=== PATIENT | male | born 1960 | race Caucasian/White ===

== ENCOUNTER → 2024-05-31 | Outpatient (CLI) | payer OTHER, MEDICAID, SELFPAY ==
[2024-05-31 16:01] LABS: Basophils # (Auto) 0.1 Thou/mm3 (0.0-0.2); Basophils % (Auto) 1 % (0-2.5); Eosinophils # (Auto) 0.1 Thou/mm3 (0.0-0.5); Eosinophils % (Auto) 1 % (0-10); Hematocrit 51.7 % (41.0-53.0); Hemoglobin 17.1 g/dL (13.5-16.0); Immature Granulocytes % (Auto) 1 % (0-0); Immature Granulocytes Auto 0.06 Thou/mm3 (0.00-0.00); Lymphocytes # (Auto) 2.4 Thou/mm3 (1.0-4.8); Lymphocytes % (Auto) 23 % (10-50); Mean Corpuscular HGB Conc 33.1 g/dl (31.0-37.0); Mean Corpuscular Hemoglobin 29.6 pg (25.0-35.0); Mean Corpuscular Volume 90 fL (80-100); Monocytes % (Auto) 9 % (0-12); Neutrophils # (Auto) 6.6 Thou/mm3 (1.8-7.7); Neutrophils % (Auto) 65 % (37-80); Nucleated Red Blood Cell % 0 /100 WBC (0); Platelet Count 380 Thou/mm3 (140-440); RDW Standard Deviation 43.1 fL (35.1-43.9); Red Blood Count 5.77 Miln/mm3 (4.50-5.90); White Blood Count 10.2 Thou/mm3 (3.8-10.6)
[2024-05-31 16:39] LABS: Alanine Aminotransferase 30 U/L (10-49); Albumin, Serum 4.7 gm/dL (3.4-4.8); Albumin/Globulin Ratio 1.9 (1.2-2.2); Alkaline Phosphatase 69 U/L (46-116); Anion Gap 6 (7-16); Aspartate Amino Transferase 22 U/L (0-34); BUN/Creatinine Ratio 27 Ratio (12-20); Blood Urea Nitrogen 24 mg/dL (9-23); Calcium 9.8 mg/dL (8.3-10.6); Calcium (Corrected) 9.8 mg/dL (8.5-10.1); Carbon Dioxide 30.2 mMol/L (20.0-31.0); Cardiac Risk Estimate 2.8 RATIO (4.0-6.7); Chloride 101 mMol/L (98-107); Cholesterol 180 mg/dL (132-200); Creatinine (Component) 0.9 mg/dL (0.6-1.3); Globulin 2.5 gm/dL (2.3-3.5); Glucose 71 mg/dL (74-106); HDL Cholesterol 64 mg/dL (40-60); LDL Cholesterol,Calculated 95 mg/dL (0-130); Osmolality,Calculated 275 (275-295); Potassium 4.7 mMol/L (3.4-5.1); Sodium 137 mMol/L (136-145); Total Protein 7.2 gm/dL (5.7-8.2); Triglycerides 103 mg/dL (30-150); eGFR > 60 See Note
== END | disposition home or self-care (01) ==
LOC: COPL 14:35
PROVIDERS: PCP Family Medicine; Referring Provider Family Medicine; Visit Provider Family Medicine
DX: E78.2 Mixed hyperlipidemia (principal); I10 Essential (primary) hypertension; D75.1 Secondary polycythemia
CPT/HCPCS: 36415; 80053; 80061; 85025

== ENCOUNTER → 2024-08-03 | Outpatient (CLI) | payer OTHER, MEDICAID, SELFPAY ==
[2024-08-03 13:24] LABS: Prostate Specific Antigen 0.43 ng/mL (0-4.00)
[2024-08-03 13:54] LABS: Basophils # (Auto) 0.1 Thou/mm3 (0.0-0.2); Basophils % (Auto) 1 % (0-2.5); Eosinophils # (Auto) 0.1 Thou/mm3 (0.0-0.5); Eosinophils % (Auto) 1 % (0-10); Hemoglobin 16.6 g/dL (13.5-16.0); Immature Granulocytes % (Auto) 1 % (0-0); Immature Granulocytes Auto 0.07 Thou/mm3 (0.00-0.00); Lymphocytes # (Auto) 1.6 Thou/mm3 (1.0-4.8); Lymphocytes % (Auto) 13 % (10-50); Mean Corpuscular HGB Conc 33.2 g/dl (31.0-37.0); Mean Corpuscular Volume 90 fL (80-100); Monocytes % (Auto) 8 % (0-12); Neutrophils # (Auto) 9.1 Thou/mm3 (1.8-7.7); Neutrophils % (Auto) 76 % (37-80); Nucleated Red Blood Cell % 0 /100 WBC (0); Platelet Count 310 Thou/mm3 (140-440); RDW Standard Deviation 45.1 fL (35.1-43.9); Red Blood Count 5.54 Miln/mm3 (4.50-5.90); White Blood Count 11.9 Thou/mm3 (3.8-10.6)
[2024-08-10 06:57] LABS: Testosterone, Free,Dialysis 244.7 pg/mL (35.0-155.0); Testosterone, Total, Dialysis 1536 ng/dL (250-1100)
== END | disposition home or self-care (01) ==
LOC: COPL 12:39
PROVIDERS: PCP Family Medicine; Referring Provider Urology; Visit Provider Urology
DX: N40.1 Benign prostatic hyperplasia with lower urinary tract symptoms (principal); E29.1 Testicular hypofunction
CPT/HCPCS: 36415; 84153; 84402; 84403; 85025

== ENCOUNTER → 2024-12-23 | Outpatient (CLI) | payer OTHER, MEDICAID, SELFPAY ==
[2024-12-23 12:09] LABS: Basophils # (Auto) 0.1 Thou/mm3 (0.0-0.2); Basophils % (Auto) 1 % (0-2.5); Eosinophils # (Auto) 0.1 Thou/mm3 (0.0-0.5); Eosinophils % (Auto) 2 % (0-10); Hematocrit 47.1 % (41.0-53.0); Hemoglobin 16.2 g/dL (13.5-16.0); Immature Granulocytes % (Auto) 1 % (0-0); Immature Granulocytes Auto 0.05 Thou/mm3 (0.00-0.00); Lymphocytes # (Auto) 1.8 Thou/mm3 (1.0-4.8); Lymphocytes % (Auto) 30 % (10-50); Mean Corpuscular HGB Conc 34.4 g/dl (31.0-37.0); Mean Corpuscular Hemoglobin 29.5 pg (25.0-35.0); Mean Corpuscular Volume 86 fL (80-100); Monocytes # (Auto) 0.8 Thou/mm3 (0.0-0.8); Monocytes % (Auto) 13 % (0-12); Neutrophils # (Auto) 3.2 Thou/mm3 (1.8-7.7); Neutrophils % (Auto) 54 % (37-80); Nucleated Red Blood Cell % 0 /100 WBC (0); Platelet Count 394 Thou/mm3 (140-440); White Blood Count 5.9 Thou/mm3 (3.8-10.6)
[2024-12-23 12:21] LABS: Creatinine,Random Urine 209 mg/dL (30-125); Protein Total, Random Urine 15 mg/dL (1-14)
[2024-12-23 12:39] LABS: Sed Rate (ESR) 22 mm/hr (0-20)
[2024-12-23 12:40] LABS: Alanine Aminotransferase 46 U/L (10-49); Aspartate Amino Transferase 27 U/L (0-34); C-Reactive Protein < 0.5 mg/dL (0.0-0.9); Free T4 (Free Thyroxine) 0.89 ng/dL (0.89-1.76); Thyroid Stimulating Hormone 4.05 uIU/mL (0.55-4.78); eGFR > 60 See Note
[2024-12-23 13:55] LABS: RA Screen Positive (Negative)
[2024-12-27 07:06] LABS: PTT-LA Screen 32 seconds (< OR = 40); dRVVT Screen 34 seconds (< OR = 45)
[2024-12-30 08:48] LABS: Cardiolipin Ab (IgA) <2.0 APL-U/mL; Cardiolipin Ab (IgG) 2.5 GPL-U/mL; Sm Antibody <1.0 NEG AI (<1.0 NEGATIVE)
[2025-01-02 06:46] LABS: ANA Screen, IFA NEGATIVE (NEGATIVE); Cardiolipin Ab (IgM) <2.0 MPL-U/mL; Complement Component C3* 168 mg/dL (82-185); Complement Component C4c* 31 mg/dL (15-53); DNA (ds) Antibody* 1 IU/mL; HLA-B27 Antigen* NEGATIVE (NEGATIVE); Parvovirus B19 Ab IgG 4.4; Parvovirus B19 Ab IgM 0.1; Sm/RNP Antibody <1.0 NEG AI (<1.0 NEGATIVE); Thyroglobulin Antibodies* <1 IU/mL (< OR = 1); Thyroid Peroxidase Antibodies* 1 IU/mL (<9)
== END | disposition home or self-care (01) ==
LOC: COPL 10:41
PROVIDERS: PCP Family Medicine; Referring Provider Internal Medicine Rheumatology; Visit Provider Internal Medicine Rheumatology
DX: R76.8 Other specified abnormal immunological findings in serum (principal)
CPT/HCPCS: 36415; 82565; 82570; 84156; 84439; 84443; 84450; 84460; 85025; 85613; 85652; 85730; 86038; 86140; 86147; 86160; 86225; 86235; 86376; 86430; 86431; 86747; 86800; 86812

== ENCOUNTER → 2025-02-23 | Outpatient (CLI) | payer OTHER, MEDICAID, SELFPAY ==
--- NOTE | 2025-02-23 12:40 | XR_ITS ---
Examination: Bone densitometry Date and time of exam:February 23, 2025, 1325 hours INDICATIONS: 65-year-old male with diagnosis age related osteoporosis, history ankle wrist fractures, family history, mother osteoporosis, patient taking methotrexate for rheumatoid arthritis, vitamin D one month Technique: Lumbar spine and hip total bone mineralization values of an calculated. Peak reference and age match control results have been displayed. Findings: Lumbar spine total bone mineralization is1.349 gm/cm2. This is 2.3 standard deviations above peak reference. This is 3.1 standard deviations above age-matched controls. Hip total bone mineralization is 1.226 gm/cm2 This is 1.3 standard deviations above peak reference. This is 1.8 standard deviations above age-matched controls Impression: There is normal mineralization based on lumbar spine measurements. There is normal mineralization based on hip measurements Lumbar mineralization is increased 5.0% compared with 03/20/2021 Hip mineralization is increased 2.0% compared with 03/20/2021
== END | disposition home or self-care (01) ==
PROVIDERS: PCP Family Medicine; Referring Provider Family Medicine; Visit Provider Family Medicine
DX: M81.0 Age-related osteoporosis without current pathological fracture (principal)
CPT/HCPCS: 77080

== ENCOUNTER → 2025-03-09 | Outpatient (CLI) | payer OTHER, MEDICAID, SELFPAY ==
[2025-03-09 12:06] LABS: Basophils # (Auto) 0.1 Thou/mm3 (0.0-0.2); Basophils % (Auto) 2 % (0-2.5); Eosinophils # (Auto) 0.1 Thou/mm3 (0.0-0.5); Eosinophils % (Auto) 3 % (0-10); Hematocrit 47.6 % (41.0-53.0); Hemoglobin 15.9 g/dL (13.5-16.0); Immature Granulocytes Auto 0.03 Thou/mm3 (0.00-0.00); Lymphocytes # (Auto) 1.6 Thou/mm3 (1.0-4.8); Lymphocytes % (Auto) 30 % (10-50); Mean Corpuscular HGB Conc 33.4 g/dl (31.0-37.0); Mean Corpuscular Hemoglobin 30.1 pg (25.0-35.0); Mean Corpuscular Volume 90 fL (80-100); Monocytes # (Auto) 0.7 Thou/mm3 (0.0-0.8); Monocytes % (Auto) 13 % (0-12); Neutrophils # (Auto) 2.7 Thou/mm3 (1.8-7.7); Neutrophils % (Auto) 52 % (37-80); Nucleated Red Blood Cell # 0.00 Thou/mm3 (0.00-0.00); Nucleated Red Blood Cell % 0 /100 WBC (0); Platelet Count 300 Thou/mm3 (140-440); RDW Standard Deviation 43.9 fL (35.1-43.9); Red Blood Count 5.29 Miln/mm3 (4.50-5.90); White Blood Count 5.2 Thou/mm3 (3.8-10.6)
[2025-03-09 12:30] LABS: Prostate Specific Antigen 0.62 ng/mL (0-4.00)
[2025-03-17 07:13] LABS: Testosterone, Free,Dialysis 46.7 pg/mL (35.0-155.0); Testosterone, Total, Dialysis 465 ng/dL (250-1100)
== END | disposition home or self-care (01) ==
PROVIDERS: PCP Family Medicine; Referring Provider Surgery; Visit Provider Surgery
DX: N40.1 Benign prostatic hyperplasia with lower urinary tract symptoms (principal); E29.1 Testicular hypofunction; R53.83 Other fatigue
CPT/HCPCS: 36415; 84153; 84402; 84403; 85025

== ENCOUNTER 2025-04-27 05:14 | Emergency (ER) | payer OTHER, MEDICAID, SELFPAY ==
[2025-04-27 05:15] VITALS: BP 174/98; PULSE 87; RESP 17; TEMP 36.8; O2SAT 95; BMI 38.2
--- NOTE | 2025-04-27 05:28 | EDRME_ITS ---
Rapid Medical Screening Exam [facility] Arrival date/time: 04/27/25 05:14 65M with history of HTN and afib presents to ED with upper ab pain and N/V. Son recently had similar symptoms, but also had diarrhea. Chief Complaint: Nausea/Vomiting/Diarrhea Vital signs: Vital Signs Temperature 98.2 F 04/27/25 05:15 Pulse Rate 87 04/27/25 05:15 Respiratory Rate 17 04/27/25 05:15 Blood Pressure 174/98 H 04/27/25 05:15 Pulse Oximetry (%) 95 04/27/25 05:15 Oxygen Delivery Method Room Air 04/27/25 05:15
[2025-04-27] MEDS: ONDANSETRON INJ 2 MG/ML INJ 2 ML 4 MG IV (06:02)
[2025-04-27] MEDS: SODIUM CHLORIDE 0.9% 1000 ML 1,000 ML 999 ML IV (06:03)
[2025-04-27 06:04] VITALS: BP 160/90; PULSE 86; RESP 19; TEMP 36.9; O2SAT 95
--- NOTE | 2025-04-27 06:21 | XR_ITS ---
Examination: CT abdomen and pelvis without contrast. Coronal 3-D reconstructions. Sagittal 2-D reconstructions. Date and time of exam: April 27, 2025, 0826 hours INDICATIONS: Upper abdominal pain and nausea beginning this morning COMPARISON: 01/17/2022 CTDI: vol (mGy): 16.7 DLP: (mGycm): 1145 Technique: Axial images of the abdomen have been obtained, 3 mm slice thickness Intravenous contrast material has not been administered. Low dose protocols were performed. One or more of the following dose reduction techniques were used; automated exposure control, adjustment of the mA and/or KV according to patient size, use of iterative reconstruction technique. Findings: No focal liver or splenic lesions Small gallstones Atrophic pancreas Spleen is not enlarged Moderate renal scar formation with perinephric stranding No renal or ureteral calculi Aortic calcification no aneurysmal dilatation No bowel obstruction No pericecal inflammatory change No diverticulitis Urinary bladder intact No prostatomegaly Moderate osteopenia IMPRESSION: Cholelithiasis, recommend gallbladder sonography follow-up Moderate bilateral renal parenchymal scar formation, no hydronephrosis renal or ureteral calculi No CT findings of appendicitis or bowel obstruction
[2025-04-27 06:37] LABS: Basophils # (Auto) 0.1 Thou/mm3 (0.0-0.2); Basophils % (Auto) 1 % (0-2.5); Eosinophils # (Auto) 0.0 Thou/mm3 (0.0-0.5); Eosinophils % (Auto) 0 % (0-10); Hematocrit 46.9 % (41.0-53.0); Hemoglobin 15.7 g/dL (13.5-16.0); Immature Granulocytes Auto 0.06 Thou/mm3 (0.00-0.00); Lymphocytes # (Auto) 0.5 Thou/mm3 (1.0-4.8); Lymphocytes % (Auto) 5 % (10-50); Mean Corpuscular HGB Conc 33.5 g/dl (31.0-37.0); Mean Corpuscular Hemoglobin 29.6 pg (25.0-35.0); Mean Corpuscular Volume 88 fL (80-100); Monocytes # (Auto) 0.8 Thou/mm3 (0.0-0.8); Monocytes % (Auto) 7 % (0-12); Neutrophils # (Auto) 9.7 Thou/mm3 (1.8-7.7); Neutrophils % (Auto) 87 % (37-80); Nucleated Red Blood Cell # 0.00 Thou/mm3 (0.00-0.00); Nucleated Red Blood Cell % 0 /100 WBC (0); Platelet Count 258 Thou/mm3 (140-440); RDW Standard Deviation 42.1 fL (35.1-43.9); Red Blood Count 5.31 Miln/mm3 (4.50-5.90); White Blood Count 11.1 Thou/mm3 (3.8-10.6)
[2025-04-27] MEDS: ACETAMINOPHEN 325 MG TABLET 650 MG PO (06:39)
[2025-04-27 06:49] LABS: Collection Type, Urine Clean Catch; Squamous Epithelial Cell,Urine 0 /hpf (0-5); WBC,Urine 0 /hpf (0-5)
[2025-04-27] MEDS: PROMETHAZINE 25 MG SUPP PR (06:54)
[2025-04-27 07:02] LABS: Alanine Aminotransferase 29 U/L (10-49); Albumin, Serum 4.6 gm/dL (3.4-4.8); Albumin/Globulin Ratio 2.1 (1.2-2.2); Alkaline Phosphatase 60 U/L (46-116); Anion Gap 9 (7-16); Aspartate Amino Transferase 22 U/L (0-34); BUN/Creatinine Ratio 10 Ratio (12-20); Bilirubin,Total 0.6 mg/dL (0.3-1.2); Blood Urea Nitrogen 10 mg/dL (9-23); Calcium 8.9 mg/dL (8.3-10.6); Calcium (Corrected) 8.9 mg/dL (8.5-10.1); Carbon Dioxide 27.9 mMol/L (20.0-31.0); Chloride 102 mMol/L (98-107); Creatinine (Component) 1.0 mg/dL (0.6-1.3); Estimated Creatinine Clearance 104.7 mL/min (>60); Globulin 2.2 gm/dL (2.3-3.5); Glucose 135 mg/dL (74-106); Lipase 19 U/L (12-53); Osmolality,Calculated 278 (275-295); Potassium 4.5 mMol/L (3.4-5.1); Sodium 139 mMol/L (136-145); Total Protein 6.8 gm/dL (5.7-8.2); eGFR > 60 See Note
[2025-04-27 07:34] VITALS: BP 130/77; PULSE 80; RESP 22; TEMP 37.2; O2SAT 97
[2025-04-27 07:39] LABS: Bacteria,Urine Rare; Bilirubin,Urine Negative (Negative); Blood,Urine Negative (Negative); Clarity,Urine Clear (Clear/Hazy); Color,Urine Yellow (Lt Yel-Yel); Culture Indicated,Urine Not Indicated; Glucose, Urine Negative (Negative); Ketones,Urine Negative (Negative); Leukocyte Esterase,Urine Negative (Negative); Nitrite,Urine Negative (Negative); PH,Urine 8.0 (5.0-7.0); Protein,Urine Trace (Neg - Trace); RBC,Urine 9 /hpf (0-3); Specific Gravity,Urine 1.026 (1.001-1.035); Urobilinogen,Urine 2.0 mg/dL (0.0-1.0)
[2025-04-27 08:00] VITALS: BP 122/71; PULSE 69; RESP 20; O2SAT 94
[2025-04-27 09:00] VITALS: BP 116/70; PULSE 67; RESP 20; O2SAT 96
--- NOTE | 2025-04-27 10:21 | PD.EDNV ---
Nausea/Vomit./Diarrhea-RME/HPI General Chief complaint: Nausea/Vomiting/Diarrhea Stated complaint: NV Time Seen by Provider: 04/27/25 06:15 Arrival date/time: 04/27/25 05:14 Limitations: no limitations RME / HPI RME / HPI Narrative: 04/27/25 05:14 65M with history of HTN and afib presents to ED with upper ab pain and N/V. Son recently had similar symptoms, but also had diarrhea. DR. VASQUEZ MAIN ED EVALUATION: 65 year old male with history of hypertension and atrial fibrillation presents to the ED for evaluation of nausea and vomiting beginning yesterday. Accompanied by mild upper abdominal pain. Reportedly son had similar symptoms though more severe. Otherwise no other complaints or associated symptoms. Denies fevers, chills, chest pain, cough, diarrhea, or urinary symptoms. Related Data Home Medications ?Medication ?Instructions ?Recorded ?Confirmed metoprolol succinate 25 mg 25 mg PO BID ##0 03/12/17 06/24/21 tablet,extended release 24 hr atorvastatin 40 mg tablet 40 mg PO DAILY 06/21/21 06/24/21 escitalopram oxalate 10 mg tablet 10 mg PO QDAY 06/21/21 06/24/21 hydrochlorothiazide 12.5 mg capsule 12.5 mg PO QAM 06/21/21 06/24/21 hydrocodone 10 mg-acetaminophen 1 tab PO [id number] PRN Pain 06/21/21 06/24/21 325 mg tablet losartan 50 mg tablet 50 mg PO QDAY 06/21/21 06/24/21 methadone 5 mg tablet 5 mg PO Q6H 06/21/21 06/24/21 pantoprazole 40 mg tablet,delayed 40 mg PO QDAY 06/21/21 06/24/21 release tadalafil 5 mg tablet 5 mg PO QDAY PRN Erectile 06/21/21 06/24/21 Dysfunction Previous Rx's ?Medication ?Instructions ?Recorded flecainide 50 mg tablet 100 mg (2 x 50 mg) PO BID #60 tabs 06/22/21 prochlorperazine 25 mg rectal 25 mg MT Q12H PRN nausea and 06/19/22 suppository (Compazine) vomiting #12 ea promethazine 25 mg rectal 25 mg MT Q6H PRN nausea and 04/27/25 suppository vomiting #12 ea Allergies Allergy/AdvReac Type Severity Reaction Status Date / Time amoxicillin Allergy Intermediate HIVES Verified 04/27/25 05:15 Review of Systems Review of Systems Systems Reviewed: All systems reviewed, normal except as documented Past Medical History Past Medical History CARDIAC: Positive Cardiac Arrhythmia, Atrial Fibrillation, Hypercholesterolemia and Hypertension RESPIRATORY: Positive Chronic Obstructive Pulmonary Disease (COPD), Asthma, Bronchitis and Sleep Apnea MUSCULOSKELETAL: Positive Musculoskeletal Disorders, Arthritis, Degenerative Disk Disease and Degenerative Joint Disease PSYCHO/SOCIAL: Positive Depression Family History FAMILY HISTORY: Positive Family Cardiac Disorders Surgical History SURGICAL: Positive Knee Sx (x3 left knee x4 right knee) and Arthroscopy Social History SMOKING STATUS: Never smoker SECOND HAND EXPOSURE: No ED Exam General Limitations: Present no limitations General appearance: Present alert and in no apparent distress Head Head exam: Present atraumatic, normocephalic and normal inspection Eye Eye exam: Present normal appearance, PERRL and EOMI ENT ENT exam: Present normal exam, normal oropharynx and mucous membranes moist Neck Neck exam: Present normal inspection, full ROM and trachea midline Chest Chest inspection: Present normal inspection and symmetric chest wall rise Respiratory Respiratory exam: Present normal lung sounds bilaterally Cardiovascular Cardiovascular exam: Present regular rate, normal rhythm and normal heart sounds Abdominal Exam Abdominal exam: Present soft and normal bowel sounds; Absent distention, tenderness, guarding, rebound or rigidity Extremities Exam Extremities exam: Present normal inspection and full ROM Back Exam Back exam: Present normal inspection and full ROM Neurological Exam Neurological exam: Present alert, oriented X3 and CN II-XII intact Psychiatric Psychiatric exam: Present normal affect and normal mood Skin Skin exam: Present warm, dry, intact and normal color Course Quality Measures none Orders Category Date Time Status Insert IV NOW Care 04/27/25 05:[address] abdomen pelvis wo con Stat Exams 04/27/25 06:21 Completed US gall bladder Stat Exams 04/27/25 10:13 Stop Req CBC Stat Lab 04/27/25 06:23 Completed CMP [Comprehensive Metabolic Panel] Stat Lab 04/27/25 06:23 Completed Lipase Stat Lab 04/27/25 06:23 Completed Urinalysis, C/S if Indicated Stat Lab 04/27/25 00:44 Completed Acetaminophen Tab [Tylenol Tab] Med 04/27/25 06:29 Discontinued 650 mg PO X1 ONE Ondansetron Inj [Zofran Inj] Med 04/27/25 05:27 Discontinued 4 mg IV X1 ONE Promethazine HCl [Phenergan Supp] Med 04/27/25 06:45 Discontinued 25 mg MT X1 ONE Sodium Chloride 0.9% 1000 ml [Ns] 1,000 ml Med 04/27/25 05:27 Discontinued IV 999 mls/hr Vital Signs Vital signs: Vital Signs Temperature 98.2 F 04/27/25 05:15 Pulse Rate 87 04/27/25 05:15 Respiratory Rate 17 04/27/25 05:15 Blood Pressure 174/98 H 04/27/25 05:15 Pulse Oximetry (%) 95 04/27/25 05:15 Oxygen Delivery Method Room Air 04/27/25 05:15 Pulse ox is 95% on room air which is adequate. Nausea/Vomiting/Diarrhea MDM Narrative MDM Narrative:: Amanda Luong am scribing for and in the presence of Dr. Chauhan. Patient data External records reviewed:: [facility] previous records Clinical information provided by:: patient Social determinants that could affect healthcare access:: none Patient has the following chronic illnesses:: Hypertension, atrial fibrillation How is presenting disease/condition affected by chronic disease/condition?: uneffected by Evaluation data The following diagnostics were reviewed and interpreted by me:: lab results and radiology exam(s) Lab and/or radiology exams considered but not ordered:: None Interpretation Summary: Ordering Physician: Josemanuel Vasquez MD Date of Service: 04/27/25 Procedure(s): CT abdomen pelvis wo con Accession Number(s): [id number] cc: Josemanuel Vasquez MD; Robby Guerrero MD; Teetee Sunshine MD~ Examination: CT abdomen and pelvis without contrast. Coronal 3-D reconstructions. Sagittal 2-D reconstructions. Date and time of exam: April 27, 2025, 0826 hours INDICATIONS: Upper abdominal pain and nausea beginning this morning COMPARISON: 01/17/2022 CTDI: vol (mGy): 16.7 DLP: (mGycm): 1145 Technique: Axial images of the abdomen have been obtained, 3 mm slice thickness Intravenous contrast material has not been administered. Low dose protocols were performed. One or more of the following dose reduction techniques were used; automated exposure control, adjustment of the mA and/or KV according to patient size, use of iterative reconstruction technique. Findings: No focal liver or splenic lesions Small gallstones Atrophic pancreas Spleen is not enlarged Moderate renal scar formation with perinephric stranding No renal or ureteral calculi Aortic calcification no aneurysmal dilatation No bowel obstruction No pericecal inflammatory change No diverticulitis Urinary bladder intact No prostatomegaly Moderate osteopenia IMPRESSION: Cholelithiasis, recommend gallbladder sonography follow-up Moderate bilateral renal parenchymal scar formation, no hydronephrosis renal or ureteral calculi No CT findings of appendicitis or bowel obstruction Dictated By: Robby Guerrero MD Signed By: <Electronically signed by Robby Guerrero MD in OV> 04/27/25 0957 Medications / Prescriptions Medications / Prescriptions considered but not ordered:: None Medication administrations:: Medication Administration History Discontinued Medications Acetaminophen (Acetaminophen 325 Mg Tablet) 650 mg PO X1 ONE Stop: 04/27/25 06:30 Last Admin: 04/27/25 06:39 Dose: 650 mg Documented By: JOE Sodium Chloride (Ns) 1,000 mls @ 999 mls/hr IV .Q1H1M ONE Stop: 04/27/25 06:27 Last Infusion: 04/27/25 08:22 Dose: Infused Documented By: Admin: 04/27/25 06:03 Dose: 999 mls/hr Documented By: JOE Ondansetron HCl (Ondansetron Inj 2 Mg/Ml Inj 2 Ml) 4 mg IV X1 ONE; Protocol Stop: 04/27/25 05:28 Last Admin: 04/27/25 06:02 Dose: 4 mg Documented By: JOE Promethazine HCl (Promethazine 25 Mg Supp) 25 mg MT X1 ONE Stop: 04/27/25 06:46 Last Admin: 04/27/25 06:54 Dose: 25 mg Documented By: JOE See above Consultations Consultation(s) initiated? (list below): No Diagnosis Nausea Differential Diagnosis: food poisoning, gastroenteritis, drug-induced nausea and vomiting and dehydration Most likely diagnosis given after review of the tests above:: Acute gastroenteritis Admission Indicated Admission indicated?: not indicated Admission Request Was there a request for admission?: No Disposition Plan Disposition Plan: Discharge Discharge Attestation Discharge Attestation: The patient and all family members were given an opportunity to ask questions and understood the discharge instructions. Discharge instructions specifically effects, indications for sooner follow up or return to the emergency department, and the expected course of current diagnosis. Patient condition: Stable Discharge Plan Plan Patient Disposition: HOME (Self Care) Patient condition on transfer: Stable Prescriptions/Referrals Prescriptions/Med Rec: No Action metoprolol succinate 25 MG tablet extended release 24 hr 25 mg PO BID Qty: 0 methadone 5 mg tablet 5 mg PO Q6H Patient Comments: TAKE ONE TABLET BY MOUTH EVERY 6 HOURS FOR 30 DAYS hydrocodone-acetaminophen 10-325 mg tablet 1 tab PO B0ULSSE PRN (Reason: Pain) Patient Comments: TAKE ONE TABLET BY MOUTH EVERY 4 TO 6 HOURS NEEDED FOR 30 DAYS atorvastatin 40 mg Tablet 40 mg PO DAILY escitalopram oxalate 10 mg Tablet 10 mg PO QDAY losartan 50 mg Tablet 50 mg PO QDAY pantoprazole 40 mg Tablet,Delayed Release (Dr/Ec) 40 mg PO QDAY hydrochlorothiazide 12.5 mg Capsule 12.5 mg PO QAM tadalafil 5 mg Tablet 5 mg PO QDAY PRN (Reason: Erectile Dysfunction) flecainide 50 mg Tablet 100 mg PO BID Qty: 60 0RF prochlorperazine [Compazine] 25 mg suppository 25 mg MT Q12H PRN (Reason: nausea and vomiting) Qty: 12 0RF Referrals: Teetee Duarte MD [Primary Care Provider, Family Practice] - In 1 week Problem List Clinical Impression: Gastroenteritis Patient/Caregiver Discharge Instructions Discharge Activity: activity as tolerated Education Materials: ED Gastroenteritis, Noninfectious Additional Instructions: Follow-up with your doctor as an outpatient next week. You did have gallstones on the CAT scan and ask your doctor to do a right upper quadrant ultrasound as follow-up. Print Language: Chinese Stand Alone Forms: Anali Award Info., Patient Portal Info Letter
[2025-04-27 10:32] VITALS: BP 112/76; PULSE 78; RESP 16; TEMP 37.1; O2SAT 99
== END 2025-04-27 10:42 | disposition home or self-care (01) ==
PROVIDERS: Physician Assistant; Emergency Provider Family Medicine; PCP Family Medicine
DX: K80.20 Calculus of gallbladder without cholecystitis without obstruction (principal); K52.9 Noninfective gastroenteritis and colitis, unspecified; I48.91 Unspecified atrial fibrillation; I10 Essential (primary) hypertension; Z79.899 Other long term (current) drug therapy
CPT/HCPCS: 36415; 74176; 80053; 81001; 83690; 85025; 96361; 96374; 99284; J2405; J7030; A9270

== ENCOUNTER 2025-04-29 07:49 | Emergency (ER) | payer OTHER, MEDICAID, SELFPAY ==
--- NOTE | 2025-04-29 07:53 | EKG_ITS ---
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
[2025-04-29 08:02] VITALS: BP 128/84; PULSE 106; RESP 18; TEMP 37.1; O2SAT 93
--- NOTE | 2025-04-29 08:05 | XR_ITS ---
Examination: AP chest single view TECHNIQUE: AP portable upright chest single view Date and time: April 29, 2025, 0847 hours INDICATIONS: Chest pain today FINDINGS: No significant cardiac enlargement Mild to moderate vascular congestion. No lobar pneumonia No courtney pulmonary edema. Prominent osteopenia IMPRESSION: Mild to moderate vascular congestion
--- NOTE | 2025-04-29 08:06 | PD.EDRME ---
Rapid Medical Screening Exam RME Arrival date/time: 04/29/25 07:49 65-year-old male with history of A-fib presents to the Emergency Department today stating that he was in A-fib today in the 150s patient reports taking flecainide as well as metoprolol Chief Complaint: Arrhythmia/Palpitations Vital signs: Vital Signs Temperature 98.7 F 04/29/25 08:02 Pulse Rate 106 H 04/29/25 08:02 Respiratory Rate 18 04/29/25 08:02 Blood Pressure 128/84 04/29/25 08:02 Pulse Oximetry (%) 93 L 04/29/25 08:02 Oxygen Delivery Method Room Air 04/29/25 08:02 Vital signs reviewed by provider: Yes Exam: On exam patient is in A-fib Patient appears to be stable at this time Clinical Impression: Initial lab work and imaging obtained
[2025-04-29 08:27] VITALS: PULSE 116
[2025-04-29 08:28] VITALS: BMI 38.2
--- NOTE | 2025-04-29 08:28 | PD.EDARRY ---
ED Arrhythmia Palp. RME/HPI General Chief Complaint: Arrhythmia/Palpitations Stated Complaint: AFIB Time Seen by Provider: 04/29/25 08:19 Arrival date/time: 04/29/25 07:49 RME / HPI RME / HPI narrative: 04/29/25 07:49 65-year-old male with history of A-fib presents to the Emergency Department today stating that he was in A-fib today in the 150s patient reports taking flecainide as well as metoprolol DR. CHAUHAN MAIN ED EVALUATION: 65-year-old male with a history of atrial fibrillation presents to the Emergency Department accompanied by his for evaluation of palpitations, chest pain, and shortness of breath that began earlier today. The patient states his heart rate at home was around 150. He took 300 mg of flecainide and 100 mg of metoprolol prior to arrival without full symptom relief, that is what his digital learning platforms manager recommended if he is symptomatic. He reports persistent shortness of breath and mild residual chest tightness, but the intensity of his chest pain has improved since onset. Denies abdominal pain, nausea, vomiting, or diarrhea. No recent illness, caffeine excess, or missed medications reported. He was previously in atrial fibrillation with RVR back on 06/17/2022 and is followed by digital learning platforms manager Dr. Mckeon. Related Data Home Medications ?Medication ?Instructions ?Recorded ?Confirmed metoprolol succinate 25 mg 25 mg PO BID ##0 03/12/17 06/24/21 tablet,extended release 24 hr atorvastatin 40 mg tablet 40 mg PO DAILY 06/21/21 06/24/21 escitalopram oxalate 10 mg tablet 10 mg PO QDAY 06/21/21 06/24/21 hydrochlorothiazide 12.5 mg capsule 12.5 mg PO QAM 06/21/21 06/24/21 hydrocodone 10 mg-acetaminophen 1 tab PO [id number] PRN Pain 06/21/21 06/24/21 325 mg tablet losartan 50 mg tablet 50 mg PO QDAY 06/21/21 06/24/21 methadone 5 mg tablet 5 mg PO Q6H 06/21/21 06/24/21 pantoprazole 40 mg tablet,delayed 40 mg PO QDAY 06/21/21 06/24/21 release tadalafil 5 mg tablet 5 mg PO QDAY PRN Erectile 06/21/21 06/24/21 Dysfunction Previous Rx's ?Medication ?Instructions ?Recorded flecainide 50 mg tablet 100 mg (2 x 50 mg) PO BID #60 tabs 06/22/21 prochlorperazine 25 mg rectal 25 mg NE Q12H PRN nausea and 06/19/22 suppository (Compazine) vomiting #12 ea promethazine 25 mg rectal 25 mg NE Q6H PRN nausea and 04/27/25 suppository vomiting #12 ea Allergies Allergy/AdvReac Type Severity Reaction Status Date / Time amoxicillin Allergy Intermediate HIVES Verified 04/27/25 05:15 Review of Systems Review of Systems Systems Reviewed: All systems reviewed, normal except as documented Past Medical History Past Medical History CARDIAC: Positive Cardiac Arrhythmia, Atrial Fibrillation, Hypercholesterolemia and Hypertension RESPIRATORY: Positive Chronic Obstructive Pulmonary Disease (COPD), Asthma, Bronchitis and Sleep Apnea MUSCULOSKELETAL: Positive Musculoskeletal Disorders, Arthritis, Degenerative Disk Disease and Degenerative Joint Disease PSYCHO/SOCIAL: Positive Depression Family History FAMILY HISTORY: Positive Family Cardiac Disorders Surgical History SURGICAL: Positive Knee Sx (x3 left knee x4 right knee) and Arthroscopy Social History SMOKING STATUS: Never smoker SECOND HAND EXPOSURE: No SUBSTANCE USE: does not use ED Exam Narrative Physical exam: GENERAL APPEARANCE: alert and oriented x 4, well-developed, well-nourished, no acute distress VITALS: All vitals were reviewed and the pulse ox is 93% on room air, which is normal according to my interpretation. HEENT: Normocephalic, atraumatic; pupils equal, round, reactive to light; EOMI; mucous membranes pink, moist; oropharynx clear NECK: Supple LUNGS: CTABL; no wheezes, no rales, no rhonchi HEART: Irregularly irregular and tachycardic rhythm consistent with atrial fibrillation with RVR; no murmurs, rubs, or gallops. 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 Care 04/29/25 08:05 Active EKG (ED ONLY) *Do not use* NOW Care 04/29/25 07:53 Completed Insert IV NOW Care 04/29/25 08:25 Active EKG (ED Only) Stat Exams 04/29/25 07:53 Draft XR chest 1V portable Stat Exams 04/29/25 08:05 Ordered B-Type Natriuretic Peptide Stat Lab 04/29/25 08:13 Received CBC Stat Lab 04/29/25 08:13 Received Comprehensive Metabolic Panel Stat Lab 04/29/25 08:13 Received Magnesium Stat Lab 04/29/25 08:13 Received Partial Thromboplastin Time Stat Lab 04/29/25 08:13 Received Prothrombin Time with INR Stat Lab 04/29/25 08:13 Received Troponin I Stat Lab 04/29/25 08:13 Received Diltiazem Inj [Cardizem Inj] Med 04/29/25 08:27 Once 10 mg IV X1 ONE Vital Signs Vital signs: Vital Signs Temperature 98.7 F 04/29/25 08:02 Pulse Rate 106 H 04/29/25 08:02 Respiratory Rate 18 04/29/25 08:02 Blood Pressure 128/84 04/29/25 08:02 Pulse Oximetry (%) 93 L 04/29/25 08:02 Oxygen Delivery Method Room Air 04/29/25 08:02 Arrhythmia/Palpitations MDM Narrative MDM Narrative:: I, Parisa Brown am scribing for and in the presence of Dr. Chauhan. Patient data External records reviewed:: [facility] previous records Clinical information provided by:: patient and spouse Social determinants that could affect healthcare access:: none Patient has the following chronic illnesses:: Atrial fibrillation; he was previously in atrial fibrillation with RVR back on 06/17/2022 and is followed by digital learning platforms manager Dr. Mckeon. How is presenting disease/condition affected by chronic disease/condition?: caused by Evaluation data The following diagnostics were reviewed and interpreted by me:: lab results, radiology exam(s) and EKG tracing(s) (My interpretation: EKG performed at 0805 hours, atrial fibrillation, rate 130, mild baseline wander, slight STdepression and flattening of V4-V6, T wave inversion in V1, lead 3, and AVF ) Lab and/or radiology exams considered but not ordered:: none Interpretation Summary: Procedure(s): XR chest 1V portable Accession Number(s): [id number] cc: [place] (JESUS),Efren LEE; Robby Guerrero MD; Teetee Sunshine MD~ Examination: AP chest single view TECHNIQUE: AP portable upright chest single view Date and time: April 29, 2025, 0847 hours INDICATIONS: Chest pain today FINDINGS: No significant cardiac enlargement Mild to moderate vascular congestion. No lobar pneumonia No courtney pulmonary edema. Prominent osteopenia IMPRESSION: Mild to moderate vascular congestion Dictated By: Robby Guerrero MD Medications / Prescriptions Medications or Prescriptions considered but not ordered:: none Medication administrations:: Medication Administration History Diltiazem HCl (Diltiazem Inj 5 Mg/Ml Vial 5 Ml) 10 mg IV X1 ONE Stop: 04/29/25 08:28 Consultations Consultation(s) initiated? (list below): No Consultation #1 (Physician, Specialty, Details): Discussed test HPI, PMHx, lab, radiology results and/or management with the patient's digital learning platforms manager Dr. Mckeon. He recommends the patient to take Flecainide twice a day every day and follow up as an outpatient; patient already has an appointment with his digital learning platforms manager next month. Time: 09:41 Diagnosis Differential diagnosis arrhythmia/palpitations: other (Atrial fibrillation with rapid ventricular response, acute coronary syndrome, and electrolyte imbalance.) Most likely diagnosis given after review of the tests above:: Atrial fibrillation with rapid ventricular response Admission Indicated Admission indicated?: not indicated Admission Request Was there a request for admission?: No Disposition Plan Disposition Plan: Discharge Discharge Attestation Discharge Attestation: The patient and all family members were given an opportunity to ask questions and understood the discharge instructions. Discharge instructions specifically effects, indications for sooner follow up or return to the emergency department, and the expected course of current diagnosis. Patient condition: Stable Discharge Plan Plan Patient Disposition: HOME (Self Care) Prescriptions/Referrals Prescriptions/Med Rec: No Action metoprolol succinate 25 MG tablet extended release 24 hr 25 mg PO BID Qty: 0 methadone 5 mg tablet 5 mg PO Q6H Patient Comments: TAKE ONE TABLET BY MOUTH EVERY 6 HOURS FOR 30 DAYS hydrocodone-acetaminophen 10-325 mg tablet 1 tab PO [id number] PRN (Reason: Pain) Patient Comments: TAKE ONE TABLET BY MOUTH EVERY 4 TO 6 HOURS NEEDED FOR 30 DAYS atorvastatin 40 mg Tablet 40 mg PO DAILY escitalopram oxalate 10 mg Tablet 10 mg PO QDAY losartan 50 mg Tablet 50 mg PO QDAY pantoprazole 40 mg Tablet,Delayed Release (Dr/Ec) 40 mg PO QDAY hydrochlorothiazide 12.5 mg Capsule 12.5 mg PO QAM tadalafil 5 mg Tablet 5 mg PO QDAY PRN (Reason: Erectile Dysfunction) flecainide 50 mg Tablet 100 mg PO BID Qty: 60 0RF prochlorperazine [Compazine] 25 mg suppository 25 mg NE Q12H PRN (Reason: nausea and vomiting) Qty: 12 0RF promethazine 25 mg suppository 25 mg NE Q6H MDD 4 PRN (Reason: nausea and vomiting) Qty: 12 0RF Referrals: Teetee Duaret MD [Primary Care Provider, Family Practice] - In 1 week Problem List Clinical Impression: Atrial fibrillation with RVR Patient/Caregiver Discharge Instructions Education Materials: ED Atrial Fibrillation Additional Instructions: Start taking flecainide 100 mg twice daily. Follow up with Dr. Collins as scheduled. Print Language: Luxembourgish Stand Alone Forms: Anali Award Info., Patient Portal Info Letter
[2025-04-29 08:31] VITALS: BP 136/82; PULSE 124
[2025-04-29] MEDS: DILTIAZEM INJ 5 MG/ML VIAL 5 ML 10 MG IV (08:31)
[2025-04-29 08:32] VITALS: PULSE 126
[2025-04-29 08:48] LABS: Basophils # (Auto) 0.1 Thou/mm3 (0.0-0.2); Basophils % (Auto) 1 % (0-2.5); Eosinophils # (Auto) 0.1 Thou/mm3 (0.0-0.5); Eosinophils % (Auto) 1 % (0-10); Hematocrit 47.1 % (41.0-53.0); Hemoglobin 15.7 g/dL (13.5-16.0); Immature Granulocytes Auto 0.04 Thou/mm3 (0.00-0.00); Lymphocytes # (Auto) 1.3 Thou/mm3 (1.0-4.8); Lymphocytes % (Auto) 19 % (10-50); Mean Corpuscular HGB Conc 33.3 g/dl (31.0-37.0); Mean Corpuscular Hemoglobin 29.6 pg (25.0-35.0); Mean Corpuscular Volume 89 fL (80-100); Monocytes # (Auto) 0.9 Thou/mm3 (0.0-0.8); Monocytes % (Auto) 14 % (0-12); Neutrophils # (Auto) 4.3 Thou/mm3 (1.8-7.7); Neutrophils % (Auto) 65 % (37-80); Nucleated Red Blood Cell # 0.00 Thou/mm3 (0.00-0.00); Nucleated Red Blood Cell % 0 /100 WBC (0); Platelet Count 259 Thou/mm3 (140-440); RDW Standard Deviation 42.5 fL (35.1-43.9); Red Blood Count 5.31 Miln/mm3 (4.50-5.90); White Blood Count 6.7 Thou/mm3 (3.8-10.6)
[2025-04-29 08:54] LABS: INR 1.1 (0.9-1.3); Partial Thromboplastin Time 31.1 Seconds (22.0-36.0); Prothrombin Time 11.6 Seconds (9.0-12.2)
[2025-04-29 08:55] LABS: Alanine Aminotransferase 22 U/L (10-49); Albumin, Serum 4.9 gm/dL (3.4-4.8); Albumin/Globulin Ratio 2.1 (1.2-2.2); Alkaline Phosphatase 55 U/L (46-116); Anion Gap 9 (7-16); Aspartate Amino Transferase 23 U/L (0-34); BUN/Creatinine Ratio 13 Ratio (12-20); Bilirubin,Total 0.6 mg/dL (0.3-1.2); Blood Urea Nitrogen 13 mg/dL (9-23); Calcium 9.7 mg/dL (8.3-10.6); Calcium (Corrected) 9.7 mg/dL (8.5-10.1); Carbon Dioxide 28.7 mMol/L (20.0-31.0); Chloride 102 mMol/L (98-107); Creatinine (Component) 1.0 mg/dL (0.6-1.3); Estimated Creatinine Clearance 104.7 mL/min (>60); Globulin 2.3 gm/dL (2.3-3.5); Glucose 142 mg/dL (74-106); Magnesium 1.9 mg/dL (1.6-2.6); Osmolality,Calculated 281 (275-295); Potassium 4.4 mMol/L (3.4-5.1); Sodium 140 mMol/L (136-145); Total Protein 7.2 gm/dL (5.7-8.2); Troponin I < 0.020 ng/mL (0.0-0.045); eGFR > 60 See Note
[2025-04-29 09:39] LABS: B-Type Natriuretic Peptide 239 pg/mL (0-100)
[2025-04-29 09:52] VITALS: BP 119/79; PULSE 89; RESP 18; O2SAT 95
== END 2025-04-29 09:53 | disposition home or self-care (01) ==
PROVIDERS: Nurse Practitioner Primary Care; Emergency Provider Emergency Medicine; PCP Family Medicine
DX: I48.91 Unspecified atrial fibrillation (principal)
CPT/HCPCS: 36415; 71045; 80053; 83735; 83880; 84484; 85025; 85610; 85730; 93005; 99283; J3490

== ENCOUNTER → 2025-05-04 | Outpatient (CLI) | payer OTHER, MEDICAID, SELFPAY ==
--- NOTE | 2025-05-04 16:31 | XR_ITS ---
Examination: Abdomen sonogram, complete Date and time of exam: May 04, 2025, 1637 hours INDICATIONS: Nausea vomiting diarrhea weight loss beginning 1 week ago, history cholelithiasis. Technique: Multiple real-time grayscale transabdominal sonographic images of the abdomen have been obtained. Findings: Tiny gallstones versus sludge balls Gallbladder 0.2 cm Common bile duct 0.4 cm Pancreas obscured by bowel gas Aorta not enlarged. Liver 13.7 cm mildly irregular contour fatty infiltration. Normal hepatopetal portal venous flow Patent IVC Right kidney 13.7 cm renal cortex 2.0 cm Lateral 3.3 cm cyst Left kidney 15.1 cm renal cortex 2.6 cm Moderate renal scar formation Spleen 9.5 cm IMPRESSION: Tiny gallstones versus sludge balls Gallbladder wall is not thickened Normal common bile duct Suspect primary bowel cellular disease Moderate bilateral renal scar formation
== END | disposition home or self-care (01) ==
PROVIDERS: PCP Family Medicine; Referring Provider Family Medicine; Visit Provider Family Medicine
DX: K82.9 Disease of gallbladder, unspecified (principal); N28.89 Other specified disorders of kidney and ureter
CPT/HCPCS: 76700